=== PATIENT | female | born 1975 | race Caucasian/White ===

== ENCOUNTER 2017-11-27 15:17 | Emergency (ER) | payer BC ==
[~2017-11-27] VITALS: Ht 165.1 cm; Wt 79.1 kg
[2017-11-27 15:19] VITALS: BP 155/92; TEMP 98.4
[2017-11-27 16:19] LABS: BASO % 0.1 % (0.0-2.0); EOS # 0.1 (0.0-0.7); EOS % 0.7 % (0-4.0); GRAN # 5.5 (1.4-6.5); GRAN % 74.5 % (42.2-75.2); HEMATOCRIT 42.2 % (37.0-47.0); HEMOGLOBIN 14.3 g/dl (12.5-16.0); LYMPH # 1.3 (1.2-3.4); MEAN CELL VOLUME 82 fl (80.0-100.0); MEAN CORPUSCULAR HEMOGLOBIN 28 pg (27.0-31.0); MEAN CORPUSCULAR HGB CONC 34 g/dl (33.0-37.0); MEAN PLATELET VOLUME 8.8 fl (7.4-10.4); MONO # 0.5 (0.1-0.6); MONO % 6.6 % (1.7-9.3); PLATELET COUNT 200 K/mm3 (130-400); RED BLOOD COUNT 5.16 M/mm3 (4.10-5.30); REDCELL DISTRIBUTION WIDTH-CV 12.5 % (11.5-14.5)
[2017-11-27 17:14] LABS: ERYTHROCYTE SEDIMENTATION RATE 9 mm/hr (0-20)
[2017-11-27] MEDS ORDERED: DOXYCYCLINE HY100 MG PO (18:23)
[2017-11-27 18:35] VITALS: PULSE 74
== END 2017-11-27 18:35 | disposition home or self-care (01) ==
LOC: COL.ER 15:17
PROVIDERS: Emergency Medicine
DX: L03.116 Cellulitis of left lower limb (principal); R22.42 Localized swelling, mass and lump, left lower limb; M79.672 Pain in left foot; Z90.710 Acquired absence of both cervix and uterus; Z98.890 Other specified postprocedural states

== ENCOUNTER → 2017-12-14 | Outpatient (CLI) | payer BC ==
[~2017-12-14] MED LIST: DOXYCYCLINE HY100 MG PO
== END ==
LOC: COL.VAS 10:06
DX: M79.89 Other specified soft tissue disorders (principal); R60.0 Localized edema

== ENCOUNTER → 2018-01-23 | Outpatient (CLI) | payer BC | LOC: COL.RAD 07:59 | DX: K76.89 Other specified diseases of liver (principal); K80.20 Calculus of gallbladder without cholecystitis without obstruction | CPT/HCPCS: Q9967 ==

== ENCOUNTER → 2018-04-05 | Outpatient (CLI) | payer BC | LOC: MC.RAD 13:50 | DX: Z12.31 Encounter for screening mammogram for malignant neoplasm of breast (principal) ==

== ENCOUNTER → 2020-09-21 | Outpatient (CLI) | payer BC ==
[~2020-09-21] MED LIST changes: +EXCEDRIN1 TAB PO
== END ==
LOC: MC.RAD 14:53
DX: Z12.31 Encounter for screening mammogram for malignant neoplasm of breast (principal)

== ENCOUNTER 2020-11-09 07:09 | Day surgery (SDC) | payer BC ==
[~2020-11-09] VITALS: Ht 165.1 cm; Wt 88.0 kg
[~2020-11-09 07:09] MED LIST changes: -EXCEDRIN1 TAB PO
[2020-11-09] MEDS ORDERED: EXCEDRIN1 TAB PO (08:10)
[2020-11-09 09:05] VITALS: BP 125/85; PULSE 58; TEMP 97.3
[2020-11-09 09:20] VITALS: BP 122/100; PULSE 53
[2020-11-09 09:35] VITALS: BP 110/73; PULSE 57
--- NOTE | 2020-11-09 10:07 | NUR ---
PT RETURNED TO BAY #1 PER CART FROM ENDO PROCEDURE ROOM. PT ALERT AND SLEEPY. LUNGS CLEAR, HRR AND CATE. BOWEL SOUNDS PRESENT AND HYPOACTIVE, PT REQUESTS MUFFIN AND BUTTER WITH GRAPE JUICE. RAY IN ROOM WITH HER. WARM BLANKET PROVIDED FOR COMFORT. DENIES NAUSEA, PAIN OR DISCOMFORT. WILL CONT TO MONITOR PROGRESS.
--- NOTE | 2020-11-09 10:12 | NUR ---
PT TOLERATING FOOD AND FLUIDS. PT STATES FEELING ALITTLE NAUSEATED AFTER RETURNING FROM ENDO PROCEDURE ROOM. PT DENIES PAIN OR DISCOMFORT. WILL CONT TO MONITOR PATIENT PROGRESS.
--- NOTE | 2020-11-09 10:14 | NUR ---
PT TOLERATING FOOD AND FLUIDS WITHOUT DIFFICULTY. DENIES PAIN OR NAUSEA OR DISCOMFORT. VSS, AFEBRILE. IV DC'D TO RIGHT HAND, PT TOLERATED WELL. PT SIGNED DISCHARGE INSTRUCTIONS, DENIES QUESTIONS. PT , ERICA DENIES QUESTIONS. PT WAS DISCHARGED OUT OF FACILITY PER TO FAMILY VEHICLE THROUGH PATIENT ENTRANCE. DRIVING VEHICLE.
[2020-11-09 10:19] VITALS: BP 115/58; PULSE 68; TEMP 97.6
== END 2020-11-09 09:40 | disposition home or self-care (01) ==
LOC: SDCO 07:09
DX: Z12.11 Encounter for screening for malignant neoplasm of colon (principal); K64.0 First degree hemorrhoids; G43.909 Migraine, unspecified, not intractable, without status migrainosus; Z90.710 Acquired absence of both cervix and uterus; Z90.89 Acquired absence of other organs; Z80.0 Family history of malignant neoplasm of digestive organs
CPT/HCPCS: J2405; J2704; J7030

== ENCOUNTER → 2024-03-24 | Outpatient (CLI) | payer BC ==
[~2024-03-24] MED LIST changes: +EXCEDRIN1 TAB PO
== END ==
LOC: MC.RAD 14:10
DX: Z12.31 Encounter for screening mammogram for malignant neoplasm of breast (principal)